=== PATIENT | female | born 1995 | race Caucasian/White ===

== ENCOUNTER → 2021-02-21 | Outpatient (CLI) | payer OTHER | LOC: COL.RAD 12:47 | DX: M25.552 Pain in left hip (principal); M25.551 Pain in right hip | CPT/HCPCS: G0260; J3301 ==

== ENCOUNTER → 2021-03-21 | Outpatient (CLI) | payer OTHER | LOC: COL.RAD 12:08 | DX: M25.552 Pain in left hip (principal) | CPT/HCPCS: J3301; Q9967 ==

== ENCOUNTER → 2021-07-29 | Outpatient (CLI) | payer OTHER | LOC: COL.RAD 10:22 | DX: M25.552 Pain in left hip (principal) ==